=== PATIENT | male | born 1945 | race Caucasian/White ===

== ENCOUNTER 2017-08-01 15:58 | Emergency (ER) | payer MEDICARE ==
[2017-08-01] MEDS ORDERED: Ondansetron ODT 4 MG TAB ONE (17:05)
--- NOTE | 2017-08-01 17:23 | RAD ---
FRONTAL VIEW CHEST THREE VIEW LEFT RIB SERIES 08/01/17 CLINICAL HISTORY: Fall with chest pain, injury. FINDINGS: There are bilateral interstitial opacities. Cardiac silhouette is prominent in size. No significant e ffusion or discrete pneumothorax. There is no displaced left rib fracture identified. IMPRESSION: 1. Bilateral atelectasis. 2. No displaced left rib fracture. POS: [facility]
--- NOTE | 2017-08-01 17:24 | RAD ---
LEFT SHOULDER THREE VIEWS 08/01/17 INDICATION: Fall with pain. 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 No fracture or dislocation. IMPRESSION: No acute osseous abnormality of the left shoulder. POS: [facility]
== END 2017-08-01 18:12 | disposition home or self-care (01) ==
LOC: ERS 15:58
DX: S20.219A Contusion of unspecified front wall of thorax, initial encounter (principal); J98.11 Atelectasis; R11.0 Nausea; I11.0 Hypertensive heart disease with heart failure; I50.9 Heart failure, unspecified; E78.5 Hyperlipidemia, unspecified; W18.30XA Fall on same level, unspecified, initial encounter
CPT/HCPCS: 93005; Q0162

== ENCOUNTER 2018-01-29 15:41 | Emergency (ER) | payer MEDICARE ==
[2018-01-29 17:05] LABS: CKMB 2.7 ng/mL (0-6.6); Troponin I Less than 0.010 ng/mL (< 0.028)
[2018-01-29 17:09] LABS: ALT (SGPT) 15 U/L (8-55); AST (SGOT) 18 U/L (5-34); Albumin 3.9 g/dL (3.4-4.8); Alkaline Phosphatase 80 U/L (40-150); Anion Gap 13 mmol/L (10-20); BUN (Urea Nitrogen) 61 mg/dL (8.4-25.7); Bilirubin, Total 0.3 mg/dL (0.2-1.2); Calc. Creatinine Clearance 0 mL/min (70-130); Calcium 9.3 mg/dL (7.8-10.44); Carbon Dioxide 29 mmol/L (23-31); Chloride 105 mmol/L (98-107); Estimated GFR-MDRD 29; Globulin 2.4 g/dL (2.4-3.5); Glucose 169 mg/dL (83-110); Potassium 4.5 mmol/L (3.5-5.1); Protein, Total 6.3 g/dL (5.8-8.1); Sodium 142 mmol/L (136-145)
--- NOTE | 2018-01-29 17:11 | RAD ---
CHEST TWO VIEWS: HISTORY: Chest pain. Shortness of breath. COMPARISON: 08/01/2017 FINDINGS: Two views of the chest show an enlarged cardiomediastinal silhouette. There appear to be small bilat eral pleural effusions with adjacent atelectasis. Degenerative changes are seen in the spine. IMPRESSION: 1. Cardiomegaly. 2. Small bilateral pleural effusions with adjacent atelectasis. POS: [facility]
[2018-01-29 17:37] LABS: #Eosinphils 0.1 thou/uL (0.0-0.7); #Lymphocytes 1.3 thou/uL (1.20-3.40); #Monocytes 1.1 thou/uL (0.11-0.59); #Neutrophils 7.7 thou/uL (1.40-6.50); %Basophils 0.3 % (0.0-1.0); %Eosinophils 1.2 % (0.0-10.0); %Lymphocytes 12.8 % (21.0-51.0); %Monocytes 10.8 % (0.0-10.0); %Neutrophils 74.9 % (42.0-75.0); Hemoglobin 10.4 g/dL (14.0-18.0); Mean Corpuscular HGB CONC 33.6 g/dL (32.0-36.0); Mean Corpuscular Hemoglobin 30.7 pg (27.0-31.0); Mean Corpuscular Volume 91.5 fL (78.0-98.0); Mean Platelet Volume 7.7 fL (7.4-10.4); Platelet Count 224 thou/uL (130-400); RBC Distribution Width 14.4 % (11.5-14.5); Red Blood Cell (RBC) Count 3.38 mill/uL (4.70-6.10); White Blood Cell (WBC) Count 10.3 thou/uL (4.8-10.8)
== END 2018-01-29 22:18 | disposition home or self-care (01) ==
LOC: ERS 15:41
DX: I11.0 Hypertensive heart disease with heart failure (principal); I50.9 Heart failure, unspecified; E78.5 Hyperlipidemia, unspecified; E11.9 Type 2 diabetes mellitus without complications; Z79.82 Long term (current) use of aspirin; Z79.84 Long term (current) use of oral hypoglycemic drugs; Z79.899 Other long term (current) drug therapy
CPT/HCPCS: 36415; 71046; 80053; 82553; 83880; 84484; 85025; 93005

== ENCOUNTER 2019-02-24 19:16 | Emergency (ER) | payer MEDICARE ==
[2019-02-24] MEDS ORDERED: Nitroglycerin 2% Ointment 1 INCH/1 GM Packet ONE (19:42)
[2019-02-24 19:54] LABS: #Eosinphils 0.1 thou/uL (0.0-0.7); #Lymphocytes 1.1 thou/uL (1.20-3.40); #Monocytes 0.9 thou/uL (0.11-0.59); #Neutrophils 6.2 thou/uL (1.40-6.50); %Basophils 0.2 % (0.0-1.0); %Eosinophils 1.2 % (0.0-10.0); %Lymphocytes 13.5 % (21.0-51.0); %Monocytes 11.1 % (0.0-10.0); Hemoglobin 8.9 g/dL (14.0-18.0); Mean Corpuscular HGB CONC 32.5 g/dL (32.0-36.0); Mean Corpuscular Hemoglobin 29.8 pg (27.0-31.0); Mean Corpuscular Volume 91.6 fL (78.0-98.0); Mean Platelet Volume 7.8 fL (7.4-10.4); Platelet Count 199 thou/uL (130-400); RBC Distribution Width 14.2 % (11.5-14.5); White Blood Cell (WBC) Count 8.4 thou/uL (4.8-10.8)
[2019-02-24] MEDS ORDERED: Furosemide 20 MG/2 ML VIAL ONE (20:04)
[2019-02-24 20:13] LABS: ALT (SGPT) 16 U/L (8-55); AST (SGOT) 18 U/L (5-34); Albumin 3.9 g/dL (3.4-4.8); Alkaline Phosphatase 78 U/L (40-150); Anion Gap 12 mmol/L (10-20); BUN (Urea Nitrogen) 56 mg/dL (8.4-25.7); Bilirubin, Total 0.3 mg/dL (0.2-1.2); Calc. Creatinine Clearance 0 mL/min (70-130); Calcium 8.8 mg/dL (7.8-10.44); Carbon Dioxide 28 mmol/L (23-31); Chloride 103 mmol/L (98-107); Estimated GFR-MDRD 25; Glucose 335 mg/dL (83-110); Potassium 4.9 mmol/L (3.5-5.1); Protein, Total 6.9 g/dL (5.8-8.1); Sodium 138 mmol/L (136-145)
--- NOTE | 2019-02-24 20:18 | RAD ---
SINGLE VIEW OF THE CHEST: Comparison: 10-22-13, 01-29-18 History: High blood pressure. FINDINGS: Single view of the chest shows an enlarged but stable cardiomediastinal silhouette. There is no evide nce of consolidation, mass, or pleural effusion. IMPRESSION: Stable cardiomegaly. POS: [facility]
[2019-02-24 21:13] LABS: Bacteria/HPF None Seen HPF (None Seen); Bilirubin Negative (Negative); Blood, Urine Negative (Negative); Clarity Clear (Clear); Glucose, Urine (Dipstick) 300 mg/dL (Negative); Leukocyte Negative Leu/uL (Negative); Nitrite Negative (Negative); Protein, Urine (Dipstick) 30 mg/dL (Neg-Trace); RBC/HPF 0-3 HPF (0-3); Squamous Epithelial None Seen HPF (0-3); Urobilinogen Normal mg/dL (Less than 2); WBC/HPF 0-3 HPF (0-3)
== END 2019-02-24 21:24 | disposition home or self-care (01) ==
LOC: ERS 19:16
DX: I11.0 Hypertensive heart disease with heart failure (principal); I50.9 Heart failure, unspecified; E11.9 Type 2 diabetes mellitus without complications; E78.5 Hyperlipidemia, unspecified; E78.00 Pure hypercholesterolemia, unspecified; Z79.899 Other long term (current) drug therapy; Z79.84 Long term (current) use of oral hypoglycemic drugs
CPT/HCPCS: 71045; 80053; 81003; 81015; 83605; 83880; 84443; 84484; 85025; 93005; 94760; 96374; J1940

== ENCOUNTER 2019-04-19 19:36 | Observation (INO) | payer MEDICARE ==
[2019-04-19 20:34] LABS: #Eosinphils 0.1 thou/uL (0.0-0.7); #Lymphocytes 1.1 thou/uL (1.20-3.40); #Neutrophils 6.6 thou/uL (1.40-6.50); %Basophils 0.5 % (0.0-1.0); %Eosinophils 1.1 % (0.0-10.0); %Lymphocytes 12.9 % (21.0-51.0); %Monocytes 10.7 % (0.0-10.0); %Neutrophils 74.8 % (42.0-75.0); Hemoglobin 9.7 g/dL (14.0-18.0); Mean Corpuscular HGB CONC 31.8 g/dL (32.0-36.0); Mean Corpuscular Hemoglobin 29.7 pg (27.0-31.0); Mean Corpuscular Volume 93.5 fL (78.0-98.0); Mean Platelet Volume 8.3 fL (7.4-10.4); Platelet Count 183 thou/uL (130-400); Red Blood Cell (RBC) Count 3.27 mill/uL (4.70-6.10); White Blood Cell (WBC) Count 8.8 thou/uL (4.8-10.8)
[2019-04-19 20:52] LABS: ALT (SGPT) 18 U/L (8-55); AST (SGOT) 18 U/L (5-34); Alkaline Phosphatase 82 U/L (40-110); Anion Gap 14 mmol/L (10-20); BUN (Urea Nitrogen) 61 mg/dL (8.4-25.7); Bilirubin, Total 0.3 mg/dL (0.2-1.2); CK (CPK) 78 U/L (30-200); Calc. Creatinine Clearance 0 mL/min (70-130); Calcium 9.2 mg/dL (7.8-10.44); Carbon Dioxide 28 mmol/L (23-31); Chloride 101 mmol/L (98-107); Estimated GFR-MDRD 23; Globulin 3.2 g/dL (2.4-3.5); Glucose 377 mg/dL (83-110); Potassium 4.5 mmol/L (3.5-5.1); Protein, Total 7.2 g/dL (5.8-8.1); Sodium 138 mmol/L (136-145)
[2019-04-19 21:14] LABS: CKMB 1.9 ng/mL (0-6.6)
--- NOTE | 2019-04-19 22:15 | RAD ---
Portable chest: HISTORY: Weakness COMPARISON: 02/24/2019 FINDINGS: Lung mobley are clear. Streaky atelectasis in both midlung mobley appear stable. Heart and mediastinum appear unremarkable. Vascularity is normal. Visualized osseous structures unremarkable. IMPRESSION: No acute finding
[2019-04-20 00:01] LABS: Troponin I 0.013 ng/mL (< 0.028)
[2019-04-20] MEDS ORDERED: Acetaminophen 325 MG TAB ONE (04:42)
[2019-04-20] MEDS ORDERED: Acetaminophen 325 MG TAB PO PRN (05:08)
[2019-04-20] MEDS ORDERED: hydrALAZINE 20 MG/ML VIAL ONE (05:35)
[2019-04-20] MEDS ORDERED: hydrALAZINE 20 MG/ML VIAL SLOW IVP PRN (05:43)
[2019-04-20 07:49] VITALS: BMI 32.1
[2019-04-20] MEDS ORDERED: FLU VACC TS2019-20(65YR UP)/PF 180 MCG/0.5 ML SYRINGE IM ONE (08:15)
[2019-04-20] MEDS: NIFEdipine XL 60 MG TAB PO SCH (09:02)
[2019-04-20] MEDS ORDERED: hydrALAZINE 20 MG/ML VIAL SLOW IVP SCH (09:30)
[2019-04-20] MEDS ORDERED: Ondansetron PF 4 MG/2 ML Vial IVP PRN (09:45)
[2019-04-20] MEDS ORDERED: Enoxaparin Sodium 30 MG/0.3 ML SYRINGE SC SCH (09:45)
[2019-04-20] MEDS ORDERED: Bisacodyl 10 MG SUPP PR PRN (09:45)
[2019-04-20] MEDS ORDERED: Ondansetron ODT 4 MG TAB PO PRN (09:45)
[2019-04-20] MEDS ORDERED: Senokot S 8.6-50 MG TAB PO PRN (09:45)
[2019-04-20] MEDS ORDERED: Dextrose 50% Abboject 50 ML SYRINGE SLOW IVP PRN (09:48)
[2019-04-20] MEDS ORDERED: Dextrose 5% in Water 1,000 ML IV PRN (09:48)
[2019-04-20] MEDS ORDERED: Furosemide 80 MG TAB PO SCH (10:00)
[2019-04-20 10:35] LABS: Bacteria/HPF None Seen HPF (None Seen); Bilirubin Negative (Negative); Blood, Urine Negative (Negative); Clarity Clear (Clear); Glucose, Urine (Dipstick) Greater than 1000 mg/dL (Negative); Leukocyte Negative Leu/uL (Negative); Nitrite Negative (Negative); Protein, Urine (Dipstick) 100 mg/dL (Neg-Trace); Squamous Epithelial None Seen HPF (0-3); Urobilinogen Normal mg/dL (Less than 2); WBC/HPF 0-3 HPF (0-3)
[2019-04-20 10:40] LABS: Urine Culture Reflex No No
[2019-04-20 10:51] LABS: Creatinine, Urine 50.68 mg/dL (63-166)
--- NOTE | 2019-04-20 11:09 | HP ---
PRIMARY CARE PHYSICIAN: Dr. Horacio Sprague. CHIEF COMPLAINT: Ill feeling and elevated blood pressure. HISTORY OF PRESENT ILLNESS: A 73-year-old male with known history of hypertension, CKD stage 3 to 4, diabetes, and others, who presents today to the ED with acute onset of ill feeling and generalized weakness. The patient also noticed that his blood pressure was elevated. There was no chest pain, palpitation, headache, fall, focal weakness, nausea, vomiting, diarrhea, or dysuria. In the emergency room, the patient was found to have elevated blood pressure up to 220/75. Further evaluation revealed mild elevation in troponin. The patient was subsequently admitted for further evaluation and treatment. He received IV hydralazine with some improvement in blood pressure. There is no history of fever or worsening shortness of breath or change in bowel habit. The patient admitted to bilateral leg swelling, which is chronic and has not worsened in the last several days. PAST MEDICAL HISTORY: 1. Chronic CHF. 2. Diabetes mellitus. 3. Hyperlipidemia. 4. CKD stage 4. 5. Glaucoma. 6. Dyslipidemia. 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 FAMILY HISTORY: Reviewed, but noncontributory. SOCIAL HISTORY: The patient lives with spouse. Denied alcohol, smoking, or recreational drug use. The patient wants to be full code with spouse being the surrogate decision maker. ALLERGIES: NO KNOWN DRUG ALLERGIES REPORTED. HOME MEDICATIONS: 1. Carvedilol 12.5 mg p.o. b.i.d. 2. Dorzolamide hydrochloride/timolol 1 drop to each eye b.i.d. 3. hydralazine 25 mg p.o. b.i.d. 4. Glipizide 5 mg p.o. b.i.d. 5. Simvastatin 40 mg p.o. daily at bedtime. Of note, this list is questionable as the patient was unable to tell me what exactly he takes. REVIEW OF SYSTEMS: A 12-point review of systems performed was negative other than pertinent positives and negatives included in the history of present illness. PHYSICAL EXAMINATION: VITAL SIGNS: Temperature 97.9, pulse 67, respiratory rate 20, SpO2 of 95% on room air, blood pressure 198/86. GENERAL: Elderly male, in no obvious distress. Afebrile. Anicteric. Acyanotic. HEENT: Normocephalic, atraumatic. Oral mucosa is moist. NECK: Supple, nontender with no obvious JVD or lymphadenopathy. CARDIOVASCULAR: Regular rhythm and rate with normal heart sounds 1 and 2. RESPIRATORY: Fair air entry bilaterally with few transmitted breath sounds. No obvious rhonchi are appreciated. Work of breathing is not increased. GI: Obese, soft, nontender, nondistended with normal bowel sounds. EXTREMITIES: Mild to moderate bilateral leg edema noted. No erythema appreciated. ADVISOR TO COMMAND IN COMBAT: Conscious, alert, oriented x3 with appropriate mental status. Cranial nerves 2 through 12 are grossly intact. The patient moves all extremities. DIAGNOSTIC DATA: CBC showed WBC count of 8.8, hemoglobin of 9.7, platelet of 183. CMP on April 19 showed sodium 138, potassium 4.5, chloride 101, CO2 of 28, BUN 61, creatinine 2.71, glucose 377, calcium 9.2, total bilirubin 0.3, AST 18, ALT 18, alkaline phosphatase 82, total protein 7.2, albumin 4.0, globulin 3.2. Initial troponin on presentation on April 19, 2019, was 0.039, but subsequent ones were 0.013 and 0.020. BNP is 2555. ASSESSMENT: 1. Accelerated hypertension. 2. Chronic kidney disease stage 4: Seems stable. 3. Chronic diastolic heart failure with no overt exacerbation. 4. Chronic bilateral leg edema. 5. Mild elevation in troponin: Subsequent troponin levels, however, were unremarkable. Most likely demand ischemia from accelerated hypertension. The patient denied chest pain, and EKG was negative for acute ischemic changes. 6. Generalized illness and weakness: May be related to chronic kidney disease stage 4 and uncontrolled hypertension. 7. Uncontrolled diabetes mellitus with hyperglycemia. 8. Physical deconditioning. PLAN: 1. We will get repeat troponin as well as repeat echocardiogram. 2. We will also get hemoglobin A1c. 3. We will start sliding scale insulin in addition to glipizide to get better glycemic control. 4. We will start the patient on nifedipine and titrate dose upwards to get adequate BP control. We will also use hydralazine IV as needed to get adequate BP control. 5. PT/OT eval and treat will be requested. 6. DVT prophylaxis with Lovenox. 7. Code status: Full code. 8. Spouse is the surrogate decision maker. 9. Further treatment to follow depending on hospital course and results of other diagnostic tests. Job ID: [id number]
[2019-04-20 12:14] LABS: Troponin I 0.016 ng/mL (< 0.028)
[2019-04-20] MEDS: HumaLOG 300 UNITS/3 ML VIAL SC PRN ×2 (12:15→17:18)
[2019-04-20] MEDS ORDERED: Insulin Glargine 20 UNITS in Pre-Filled Syringe 1 EACH SC SCH (21:00)
[2019-04-20] MEDS ORDERED: Insulin Regular 300 UNITS/3 ML VIAL SC PRN (22:21)
[2019-04-20] MEDS ORDERED: HumaLOG 300 UNITS/3 ML VIAL SC PRN (22:21)
[2019-04-20] MEDS ORDERED: Melatonin 3 MG TAB PO PRN (22:33)
[2019-04-21 05:57] LABS: #Eosinphils 0.2 thou/uL (0.0-0.7); #Lymphocytes 1.5 thou/uL (1.20-3.40); #Neutrophils 6.1 thou/uL (1.40-6.50); %Basophils 0.6 % (0.0-1.0); %Lymphocytes 16.9 % (21.0-51.0); %Monocytes 10.8 % (0.0-10.0); %Neutrophils 69.7 % (42.0-75.0); Hemoglobin 9.2 g/dL (14.0-18.0); Mean Corpuscular HGB CONC 32.9 g/dL (32.0-36.0); Mean Corpuscular Hemoglobin 30.4 pg (27.0-31.0); Mean Corpuscular Volume 92.6 fL (78.0-98.0); Mean Platelet Volume 8.8 fL (7.4-10.4); Platelet Count 189 thou/uL (130-400); RBC Distribution Width 15.7 % (11.5-14.5); Red Blood Cell (RBC) Count 3.03 mill/uL (4.70-6.10); White Blood Cell (WBC) Count 8.8 thou/uL (4.8-10.8)
[2019-04-21 06:19] LABS: Albumin 3.5 g/dL (3.4-4.8); Anion Gap 13 mmol/L (10-20); BUN (Urea Nitrogen) 62 mg/dL (8.4-25.7); BUN/Creatinine Ratio 23.48; Calc. Creatinine Clearance 32 mL/min (70-130); Calcium 8.6 mg/dL (7.8-10.44); Carbon Dioxide 27 mmol/L (23-31); Chloride 106 mmol/L (98-107); Estimated GFR-MDRD 24; Glucose 129 mg/dL (83-110); Phosphorus 4.2 mg/dL (2.3-4.7); Potassium 4.2 mmol/L (3.5-5.1); Sodium 142 mmol/L (136-145)
--- NOTE | 2019-04-21 08:23 | PDOC.HOSPP ---
- Subjective Encounter Date: 04/21/19 Encounter Time: 08:21 Subjective: Had 2 runs of asymptomatic 2nd degree AV block overnight. Feeling better. - Objective Vital Signs & Weight: Vital Signs (12 hours) Temp Pulse Resp BP Pulse Ox 04/21/19 04:24 98.7 F 60 18 125/60 93 L 04/20/19 23:08 97.5 F L 63 20 154/70 H 92 L Weight Weight 200 lb 3.2 oz I&O: 04/20/19 04/21/19 04/22/19 06:59 06:59 06:59 Intake Total 720 Output Total 1725 Balance -1005 Result Diagrams: 04/21/19 04:57 04/21/19 04:57 Additional Labs: Accuchecks 04/21/19 04/20/19 04/20/19 05:29 21:09 16:41 POC Glucose 127 H 239 H 261 H 04/20/19 10:42 POC Glucose 384 H Hospitalist ROS - Medication Medications: Active Medications Generic Name Dose Route Start Last Admin Trade Name Freq PRN Reason Stop Dose Admin Hydralazine HCl 10 mg 04/20/19 05:43 04/20/19 05:35 Apresoline SLOW IVP 10 mg Q4H PRN Administration SBP > 160; DBP > 100 Insulin Glargine 20 units/ 0.2 mls @ 0 mls/hr 04/20/19 21:00 04/20/19 21:32 Miscellaneous Medication SC 0.2 mls HS CAROLYN Administration Insulin Human Lispro 0 units 04/20/19 09:48 04/20/19 17:18 Humalog SC 6 unit .MODERATE SLIDING SC PRN Administration Moderate Correctional Scale Insulin Human Lispro 0 units 04/20/19 22:21 04/20/19 23:06 Humalog SC 2 unit .BEDTIME SLIDING SC PRN Administration Bedtime Correctional Scale Nifedipine 60 mg 04/20/19 09:00 04/20/19 09:02 Procardia Xl PO 60 mg DAILY CAROLYN Administration Sodium Chloride 10 ml 04/20/19 09:00 04/20/19 21:32 Flush - Normal Saline IVF 10 ml Q12HR CAROLYN Administration - Exam General Appearance: awake alert Eye: anicteric sclera ENT: normocephalic atraumatic Neck: symmetric, no JVD Heart: RRR Respiratory: no wheezes, no ronchi, normal chest expansion, no tachypnea Gastrointestinal: soft, non-tender, non-distended, normal bowel sounds Extremities: 1+ LE edema Neurological: cranial nerve grossly intact, no focal deficits Neurological - other findings: Hard of hearing. Psychiatric: normal affect, A&O x 3 Hosp A/P (1) Accelerated hypertension Code(s): I10 - ESSENTIAL (PRIMARY) HYPERTENSION Status: Acute (2) AV block, 2nd degree Code(s): I44.1 - ATRIOVENTRICULAR BLOCK, SECOND DEGREE Status: Acute (3) Chronic diastolic (congestive) heart failure Code(s): I50.32 - CHRONIC DIASTOLIC (CONGESTIVE) HEART FAILURE Status: Acute (4) Chronic kidney disease, stage 4 (severe) Code(s): N18.4 - CHRONIC KIDNEY DISEASE, STAGE 4 (SEVERE) Status: Acute (5) Diabetes mellitus type 2 Code(s): E11.9 - TYPE 2 DIABETES MELLITUS WITHOUT COMPLICATIONS Status: Chronic - Plan Continue to hold coreg. Continue nifedipine and lasix. Await Cardiology evlaution Get Echo For dischrge once cleared by cardiology
[2019-04-21] MEDS ORDERED: Furosemide 80 MG TAB PO SCH (09:00)
[2019-04-21] MEDS ORDERED: Enoxaparin Sodium 30 MG/0.3 ML SYRINGE SC SCH (09:00)
[2019-04-21] MEDS: NIFEdipine XL 60 MG TAB PO SCH (09:14)
[2019-04-21 12:14] VITALS: TEMP 97.3
[2019-04-21] MEDS ORDERED: NIFEdipine XL 30 MG TAB PO SCH (12:15)
--- NOTE | 2019-04-21 12:48 | CON ---
DATE OF CONSULTATION: REASON FOR CONSULTATION: Second-degree type 1 AV block. HISTORY OF PRESENT ILLNESS: Mr. Peres is a 73-year-old gentleman, who is a patient of Dr. Manuel Churchill. He recently was admitted for hypertension. He had an asymptomatic second-degree type 1 AV block while asleep only. No syncope or presyncope associated symptoms. PAST MEDICAL HISTORY: Diabetes mellitus, hyperlipidemia, chronic kidney disease, and CHF. ALLERGIES: NONE. REVIEW OF SYSTEMS: Ten-point review of systems is reviewed as above, otherwise negative. PHYSICAL EXAMINATION: GENERAL: Patient is a pleasant gentleman, who is in no acute distress. The patient appears their stated age. VITAL SIGNS: Blood pressure 116/69, pulse 63, and temperature 97.3. NEUROLOGIC: The patient is alert and oriented x3 with no focal neurologic deficits. HEENT: Sclerae without icterus. Mouth has moist mucous membranes with normal pallor. NECK: No JVD. Carotid upstroke brisk. No bruits bilaterally. LUNGS: Clear to auscultation with unlabored respirations. BACK: No scoliosis or kyphosis. CARDIAC: Regular rate and rhythm with normal S1 and S2. No S3 or S4 noted. No significant rubs, murmurs, thrills, or gallops noted throughout the precordium. PMI is not displaced. There is no parasternal heave. ABDOMEN: Soft, nontender, nondistended. No peritoneal signs present. No hepatosplenomegaly. No abnormal striae. EXTREMITIES: 2+ femoral and 2+ dorsalis pedis pulses. No cyanosis, clubbing, or edema. SKIN: No gross abnormalities. PERTINENT LABORATORY DATA: Hemoglobin 9.2. Creatinine 2.6. IMPRESSION: Second-degree type 1 atrioventricular block. RECOMMENDATIONS: This is likely due to increased vagal tone. This occurred while asleep. No current symptoms. No syncope or presyncope, lightheaded, or dizziness. No further recommendations for second-degree type 1 AV block. We will sign off. Please re-consult if needed. Job ID: [id number]
[2019-04-22 09:00] VITALS: BP 138/63
[2019-04-22] MEDS ORDERED: NIFEdipine XL 90 MG TAB PO SCH (09:00)
--- NOTE | 2019-04-22 14:54 | DIS ---
DATE OF ADMISSION: 04/20/2019 DATE OF DISCHARGE: 04/21/2019 PRIMARY CARE PHYSICIAN: Dr. Horacio Sprague. DISCHARGE DIAGNOSES: 1. Accelerated hypertension. 2. Second-degree AV block. 3. Acute on chronic diastolic heart failure. 4. Chronic kidney disease, stage 4. 5. Type 2 diabetes mellitus. CONSULTS: Cardiology. HOSPITAL COURSE: A 73-year-old male with known history of hypertension, CKD stage 4, diabetes, and others who was admitted with generalized ill feeling and weakness. The patient also reported that blood pressure was elevated at home. On presentation to the ED, he was found to have acutely elevated BP of 220/75. He also was found to have mild elevation in troponin, hence was admitted. Antihypertensives were adjusted while the patient also received IV hydralazine with improvement in blood pressure. Serial troponin was observed. Initial troponin was mildly elevated at 0.039, but subsequent ones were unremarkable. The patient also remained without chest pain prior to presentation and during this hospitalization. He was also found to have bilateral leg swelling and some bibasilar crackles consistent with acute on chronic heart failure. The patient also was noted to have second-degree AV block at night, which was largely asymptomatic. Impression of acute on chronic diastolic heart failure was made and the patient was treated with diuretics with improvement. The patient also was started on nifedipine, which was escalated to get adequate BP control. Cardiology consult was obtained due to a second-degree AV block and he was of the view that this is asymptomatic and it happened at sleep. As such, no intervention is required at this time. The patient, who was on Coreg on presentation had that held during this hospitalization and at discharge. He was, however, asked to follow up with the advertising sales associate for further evaluation and treatment. The patient also was found to have CKD stage 4, which remained stable during this hospitalization and he was asked to follow up with the quality assurance engineer. He remained stable and was subsequently discharged home. FOLLOWUP: 1. With PCP in 1 week. 2. With advertising sales associate and quality assurance engineer in 1 week. DISCHARGE MEDICATIONS: 1. Doxycycline 100 mg p.o. daily. 2. Dorzolamide/timolol 1 drop to each eye b.i.d. 3. Ferrous sulfate 1 tablet p.o. daily. 4. Glipizide 10 mg p.o. t.i.d. 5. Insulin Lantus 20 units daily at bedtime. 6. Latanoprost one drop to each eye at bedtime. 7. Magnesium 250 mg p.o. daily. 8. Multivitamin one tablet p.o. daily. 9. Simvastatin 40 mg p.o. daily at bedtime. 10. Furosemide 80 mg p.o. daily. 11. Nifedipine 90 mg p.o. daily. Job ID: [id number]
--- NOTE | 2019-04-28 02:14 | EKG ---
Test Reason : WEAKNESS Blood Pressure : / mmHG Vent. Rate : 058 BPM Atrial Rate : 058 BPM P-R Int : 386 ms QRS Dur : 094 ms QT Int : 456 ms P-R-T Axes : 024 -33 033 degrees QTc Int : 447 ms Sinus bradycardia with 1st degree A-V block Left axis deviation Moderate voltage criteria for LVH, may be normal variant Abnormal ECG Confirmed by SALIMA Wilson, JB ([id number]), acquisitions editor MILLIE LONGO ([id number] on 04/28/2019 2:13:58 AM Referred By: Confirmed By:JB BORREGO M.D.
== END 2019-04-21 16:15 | disposition home or self-care (01) ==
LOC: ERS 19:36 → ERHOLD 04-20 00:07 → 2SW 04-20 07:25
PROVIDERS: ADMIT Hospitalist; ATTEND Hospitalist
DX: I13.0 Hypertensive heart and chronic kidney disease with heart failure and stage 1 through stage 4 chronic kidney disease, or unspecified chronic kidney disease (principal); E11.22 Type 2 diabetes mellitus with diabetic chronic kidney disease; N18.4 Chronic kidney disease, stage 4 (severe); I50.33 Acute on chronic diastolic (congestive) heart failure; I44.1 Atrioventricular block, second degree; R53.1 Weakness; E78.5 Hyperlipidemia, unspecified; H40.9 Unspecified glaucoma; R79.89 Other specified abnormal findings of blood chemistry; E11.65 Type 2 diabetes mellitus with hyperglycemia; Z79.4 Long term (current) use of insulin; Z79.899 Other long term (current) drug therapy
CPT/HCPCS: 71045; 80053; 80069; 81001; 82550; 82553; 82570; 82962 ×2; 83036; 83880; 84156; 84300; 84484 ×2; 84540; 85025 ×2; 90662; 93005; 93306; 96372; 96374; 97139 ×3; 99285; G0008; G0378 ×4; 36415; 36416; 90471; J0360; J1650; J1815

== ENCOUNTER 2020-08-04 03:06 | Inpatient (IN) | payer MEDICARE, OTHER ==
[2020-08-04 03:58] LABS: Hemoglobin 11.5 g/dL (14.0-18.0); Mean Corpuscular HGB CONC 32.5 g/dL (32.0-36.0); Mean Corpuscular Hemoglobin 30.9 pg (27.0-31.0); Mean Corpuscular Volume 94.9 fL (78.0-98.0); RBC Distribution Width 14.1 % (11.5-14.5); Red Blood Cell (RBC) Count 3.73 mill/uL (4.70-6.10)
[2020-08-04 03:59] LABS: Bilirubin Negative (Negative); Blood, Urine 1+ (Negative); Clarity Clear (Clear); Glucose, Urine (Dipstick) Normal (Negative); Ketone, Urine Negative (Negative); Leukocyte Negative Leu/uL (Negative); Nitrite Negative (Negative); Protein, Urine (Dipstick) 200 mg/dL (Neg-Trace); RBC/HPF 0-3 HPF (0-3); Specific Gravity, Urine 1.012 (1.002-1.036); Squamous Epithelial None Seen HPF (0-3); Urobilinogen Normal mg/dL (Less than 2); WBC/HPF 0-3 HPF (0-3)
[2020-08-04 04:09] LABS: ALT (SGPT) 29 U/L (8-55); AST (SGOT) 38 U/L (5-34); Albumin 4.3 g/dL (3.4-4.8); Alkaline Phosphatase 121 U/L (40-110); Anion Gap 19 mmol/L (10-20); BUN (Urea Nitrogen) 73 mg/dL (8.4-25.7); Bilirubin, Total 0.3 mg/dL (0.2-1.2); Calc. Creatinine Clearance 0 mL/min (70-130); Calcium 8.8 mg/dL (7.8-10.44); Carbon Dioxide 25 mmol/L (23-31); Chloride 107 mmol/L (98-107); Globulin 3.8 g/dL (2.4-3.5); Glucose 110 mg/dL (83-110); Potassium 4.8 mmol/L (3.5-5.1); Protein, Total 8.1 g/dL (5.8-8.1); Sodium 146 mmol/L (136-145)
[2020-08-04 04:13] LABS: Bacteria/HPF 1+ HPF (None Seen)
[2020-08-04] MEDS ORDERED: Aspirin 325 MG TAB ONE (04:22)
[2020-08-04 04:28] LABS: Band 6 % (5-11); Lymphocytes 8 % (21-51); MDiff Complete? YES; Mean Platelet Volume 8.5 fL (7.4-10.4); Monocytes 13 % (0-10); Neutrophil 72 % (42-75); Platelet Count 221 thou/uL (130-400)
[2020-08-04 04:33] LABS: CKMB 2.7 ng/mL (0-6.6)
[2020-08-04] MEDS ORDERED: Nitroglycerin 2% Ointment 1 INCH/1 GM Packet ONE (04:37)
[2020-08-04 06:57] LABS: Troponin I 0.069 ng/mL (< 0.028)
[2020-08-04] MEDS ORDERED: Acetaminophen 650 MG Suppository PR PRN (08:25)
[2020-08-04] MEDS ORDERED: Dextrose 50% Abboject 50 ML SYRINGE SLOW IVP PRN (08:27)
[2020-08-04] MEDS ORDERED: Dextrose 5% in Water 1,000 ML IV PRN (08:27)
[2020-08-04] MEDS ORDERED: Sodium Chloride 0.9% 500 ML IV SCH (08:30)
[2020-08-04] MEDS ORDERED: DorzolamidE/Timolol 2%/0.5% Ophth Soln 10 ml Bottle EA EYE SCH (09:00)
[2020-08-04] MEDS ORDERED: NIFEdipine XL 90 MG TAB PO SCH (09:00)
[2020-08-04] MEDS: NIFEdipine XL 60 MG TAB PO SCH (10:28)
[2020-08-04] MEDS ORDERED: Dextrose 5% in Water 1,000 ML IV SCH (10:45)
[2020-08-04 11:05] LABS: Troponin I 0.085 ng/mL (< 0.028)
[2020-08-04] MEDS: Heparin 5,000 UNITS/ML VIAL SC SCH ×3 (11:29→21:26)
[2020-08-04 11:49] LABS: Sodium 143 mmol/L (136-145)
[2020-08-04 14:04] LABS: SARS-CoV-2 PCR by NAA DETECTED (NotDetected)
[2020-08-04 18:49] LABS: Sodium 141 mmol/L (136-145)
[2020-08-04 19:04] VITALS: BMI 32.5
[2020-08-04] MEDS ORDERED: hydrALAZINE 20 MG/ML VIAL SLOW IVP SCH (21:00)
[2020-08-04] MEDS: Latanoprost 0.005% Ophth Soln 2.5 ml Bottle EA EYE SCH (21:24)
[2020-08-04] MEDS: Insulin Glargine 10 UNITS in Pre-Filled Syringe 1 EACH SC SCH (22:21)
[2020-08-04] MEDS ORDERED: Melatonin 3 MG TAB PO SCH ×2 (23:00)
[2020-08-04 23:27] LABS: Sodium 142 mmol/L (136-145)
[2020-08-05] MEDS ORDERED: hydrALAZINE 20 MG/ML VIAL SLOW IVP SCH (04:15)
[2020-08-05 05:35] LABS: Sodium 141 mmol/L (136-145)
[2020-08-05 05:38] LABS: Anion Gap 14 mmol/L (10-20); BUN (Urea Nitrogen) 66 mg/dL (8.4-25.7); Calc. Creatinine Clearance 31 mL/min (70-130); Carbon Dioxide 22 mmol/L (23-31); Chloride 109 mmol/L (98-107); Potassium 4.4 mmol/L (3.5-5.1); Sodium 141 mmol/L (136-145)
[2020-08-05 05:39] LABS: Glucose 147 mg/dL (83-110)
[2020-08-05 05:54] LABS: Mean Corpuscular HGB CONC 33.1 g/dL (32.0-36.0); Mean Corpuscular Hemoglobin 31.1 pg (27.0-31.0); Mean Platelet Volume 8.5 fL (7.4-10.4); Platelet Count 186 thou/uL (130-400); Red Blood Cell (RBC) Count 3.23 mill/uL (4.70-6.10)
[2020-08-05 06:39] LABS: Band 16 % (5-11); Lymphocytes 9 % (21-51); MDiff Complete? YES; Monocytes 14 % (0-10); Neutrophil 61 % (42-75)
[2020-08-05] MEDS: DorzolamidE/Timolol 2%/0.5% Ophth Soln 10 ml Bottle EA EYE SCH ×3 (07:30→16:31)
[2020-08-05] MEDS: Zinc Sulfate 220 MG CAP PO SCH (09:05)
[2020-08-05] MEDS: NIFEdipine XL 60 MG TAB PO SCH (09:05)
[2020-08-05] MEDS: Ascorbic Acid 500 mg Chewable Tablet PO SCH (09:05)
[2020-08-05] MEDS: Cholecalciferol (Vitamin D3) 400 UNITS TAB PO SCH (09:05)
[2020-08-05] MEDS: Heparin 5,000 UNITS/ML VIAL SC SCH ×3 (09:06→20:43)
[2020-08-05] MEDS ORDERED: Carvedilol 6.25 MG TAB PO SCH ×3 (11:07→17:00)
[2020-08-05] MEDS: HumaLOG 300 UNITS/3 ML VIAL SC PRN ×3 (11:27→20:47)
[2020-08-05 12:07] LABS: Sodium 140 mmol/L (136-145)
[2020-08-05] MEDS ORDERED: Rocuronium Bromide 10 MG/ML (10ML VIAL) ONE (12:18)
[2020-08-05] MEDS: Carvedilol 6.25 MG TAB PO SCH (16:30)
[2020-08-05 17:55] LABS: Sodium 139 mmol/L (136-145)
[2020-08-05] MEDS: Melatonin 3 MG TAB PO SCH (20:42)
[2020-08-05] MEDS: Insulin Glargine 10 UNITS in Pre-Filled Syringe 1 EACH SC SCH (20:48)
[2020-08-05] MEDS: Latanoprost 0.005% Ophth Soln 2.5 ml Bottle EA EYE SCH (20:50)
[2020-08-06] MEDS: Carvedilol 6.25 MG TAB PO SCH ×2 (07:36→15:56)
[2020-08-06] MEDS: Cholecalciferol (Vitamin D3) 400 UNITS TAB PO SCH (07:39)
[2020-08-06] MEDS: DorzolamidE/Timolol 2%/0.5% Ophth Soln 10 ml Bottle EA EYE SCH ×2 (07:39→16:03)
[2020-08-06] MEDS: Heparin 5,000 UNITS/ML VIAL SC SCH ×3 (07:39→20:35)
[2020-08-06] MEDS: Ascorbic Acid 500 mg Chewable Tablet PO SCH (07:39)
[2020-08-06] MEDS: NIFEdipine XL 60 MG TAB PO SCH (07:39)
[2020-08-06] MEDS: Zinc Sulfate 220 MG CAP PO SCH (07:40)
[2020-08-06] MEDS: Acetaminophen 325 MG TAB PO PRN (11:02)
[2020-08-06] MEDS ORDERED: Ondansetron PF 4 MG/2 ML Vial IVP PRN (14:48)
[2020-08-06] MEDS ORDERED: Ondansetron ORAL SOLN. 4 MG/5 ML UDCUP PO PRN (14:48)
[2020-08-06 14:52] LABS: Anion Gap 17 mmol/L (10-20); BUN (Urea Nitrogen) 88 mg/dL (8.4-25.7); Calc. Creatinine Clearance 21 mL/min (70-130); Calcium 7.4 mg/dL (7.8-10.44); Carbon Dioxide 20 mmol/L (23-31); Chloride 105 mmol/L (98-107); Glucose 252 mg/dL (83-110); Potassium 4.4 mmol/L (3.5-5.1); Sodium 138 mmol/L (136-145)
[2020-08-06 15:00] LABS: Band 14 % (5-11); Hemoglobin 8.9 g/dL (14.0-18.0); Lymphocytes 6 % (21-51); MDiff Complete? YES; Mean Corpuscular HGB CONC 32.6 g/dL (32.0-36.0); Mean Corpuscular Volume 95.1 fL (78.0-98.0); Mean Platelet Volume 8.8 fL (7.4-10.4); Monocytes 10 % (0-10); Myelocyte 1 % (0-0); Neutrophil 69 % (42-75); Platelet Count 163 thou/uL (130-400); Platelet Morphology Comment Appears Adequate; Red Blood Cell (RBC) Count 2.87 mill/uL (4.70-6.10); Schistocytes SLIGHT = 2-5 cells (100X) (0-1/hpf); White Blood Cell (WBC) Count 7.7 thou/uL (4.8-10.8)
[2020-08-06] MEDS: HumaLOG 300 UNITS/3 ML VIAL SC PRN ×2 (16:56→20:31)
[2020-08-06] MEDS: Insulin Glargine 10 UNITS in Pre-Filled Syringe 1 EACH SC SCH (20:30)
[2020-08-06] MEDS: Melatonin 3 MG TAB PO SCH (20:35)
[2020-08-06] MEDS: Latanoprost 0.005% Ophth Soln 2.5 ml Bottle EA EYE SCH (20:35)
[2020-08-07 07:14] LABS: Hemoglobin 9.2 g/dL (14.0-18.0); Mean Corpuscular HGB CONC 33.3 g/dL (32.0-36.0); Mean Corpuscular Hemoglobin 31.6 pg (27.0-31.0); Mean Platelet Volume 8.9 fL (7.4-10.4); Platelet Count 163 thou/uL (130-400); RBC Distribution Width 13.8 % (11.5-14.5); Red Blood Cell (RBC) Count 2.91 mill/uL (4.70-6.10); White Blood Cell (WBC) Count 7.5 thou/uL (4.8-10.8)
[2020-08-07 07:25] LABS: Anion Gap 19 mmol/L (10-20); BUN (Urea Nitrogen) 106 mg/dL (8.4-25.7); Calc. Creatinine Clearance 18 mL/min (70-130); Calcium 7.3 mg/dL (7.8-10.44); Carbon Dioxide 18 mmol/L (23-31); Chloride 104 mmol/L (98-107); Glucose 153 mg/dL (83-110); Potassium 4.4 mmol/L (3.5-5.1); Sodium 137 mmol/L (136-145)
[2020-08-07 08:43] LABS: Band 22 % (5-11); Lymphocytes 8 % (21-51); MDiff Complete? YES; Monocytes 8 % (0-10); Neutrophil 62 % (42-75); Platelet Morphology Comment Appears Adequate; Polychromasia SLIGHT = 2-3 cells (100X) (0-2/hpf)
[2020-08-07] MEDS: Cholecalciferol (Vitamin D3) 400 UNITS TAB PO SCH (09:52)
[2020-08-07] MEDS: Zinc Sulfate 220 MG CAP PO SCH (09:52)
[2020-08-07] MEDS: NIFEdipine XL 60 MG TAB PO SCH (09:52)
[2020-08-07] MEDS: Carvedilol 6.25 MG TAB PO SCH ×2 (09:52→18:17)
[2020-08-07] MEDS: Ascorbic Acid 500 mg Chewable Tablet PO SCH (09:52)
[2020-08-07] MEDS: Latanoprost 0.005% Ophth Soln 2.5 ml Bottle EA EYE SCH (09:53)
[2020-08-07] MEDS: Heparin 5,000 UNITS/ML VIAL SC SCH ×3 (09:55→20:39)
[2020-08-07] MEDS: DorzolamidE/Timolol 2%/0.5% Ophth Soln 10 ml Bottle EA EYE SCH ×2 (12:50→17:31)
[2020-08-07] MEDS: Sodium Chloride 0.9% 1,000 ML IV SCH (13:47)
[2020-08-07] MEDS: HumaLOG 300 UNITS/3 ML VIAL SC PRN (16:37)
[2020-08-07] MEDS: Melatonin 3 MG TAB PO SCH (20:38)
[2020-08-07] MEDS: Insulin Glargine 10 UNITS in Pre-Filled Syringe 1 EACH SC SCH (20:39)
[2020-08-08 05:43] LABS: Anion Gap 23 mmol/L (10-20); BUN (Urea Nitrogen) 111 mg/dL (8.4-25.7); Calc. Creatinine Clearance 16 mL/min (70-130); Calcium 6.9 mg/dL (7.8-10.44); Carbon Dioxide 13 mmol/L (23-31); Chloride 103 mmol/L (98-107); Glucose 179 mg/dL (83-110); Potassium 4.3 mmol/L (3.5-5.1); Sodium 135 mmol/L (136-145)
[2020-08-08 06:41] LABS: Band 37 % (5-11); Hemoglobin 8.3 g/dL (14.0-18.0); Lymphocytes 9 % (21-51); MDiff Complete? YES; Mean Corpuscular HGB CONC 31.9 g/dL (32.0-36.0); Mean Corpuscular Hemoglobin 29.9 pg (27.0-31.0); Mean Corpuscular Volume 93.5 fL (78.0-98.0); Mean Platelet Volume 8.4 fL (7.4-10.4); Monocytes 15 % (0-10); Neutrophil 39 % (42-75); Platelet Count 166 thou/uL (130-400); Platelet Morphology Comment Appears Adequate; RBC Distribution Width 13.8 % (11.5-14.5); Red Blood Cell (RBC) Count 2.78 mill/uL (4.70-6.10)
[2020-08-08] MEDS: Zinc Sulfate 220 MG CAP PO SCH (07:50)
[2020-08-08] MEDS: Heparin 5,000 UNITS/ML VIAL SC SCH ×3 (07:50→20:56)
[2020-08-08] MEDS: Ascorbic Acid 500 mg Chewable Tablet PO SCH (07:54)
[2020-08-08] MEDS: Cholecalciferol (Vitamin D3) 400 UNITS TAB PO SCH (08:07)
[2020-08-08] MEDS: NIFEdipine XL 60 MG TAB PO SCH (08:09)
[2020-08-08] MEDS: DorzolamidE/Timolol 2%/0.5% Ophth Soln 10 ml Bottle EA EYE SCH ×2 (08:09→17:36)
[2020-08-08] MEDS: Sodium Chloride 0.9% 1,000 ML IV SCH (08:10)
[2020-08-08] MEDS: Carvedilol 6.25 MG TAB PO SCH ×2 (08:10→17:43)
[2020-08-08] MEDS ORDERED: NIFEdipine XL 60 MG TAB PO SCH (09:54)
[2020-08-08] MEDS ORDERED: hydrALAZINE 20 MG/ML VIAL SLOW IVP PRN (09:55)
[2020-08-08] MEDS ORDERED: NIFEdipine XL 30 MG TAB PO SCH (10:15)
[2020-08-08] MEDS: HumaLOG 300 UNITS/3 ML VIAL SC PRN ×2 (12:44→17:36)
[2020-08-08] MEDS: NIFEdipine XL 30 MG TAB PO SCH (12:45)
[2020-08-08] MEDS: Acetaminophen 325 MG TAB PO PRN (14:12)
[2020-08-08] MEDS: Insulin Glargine 10 UNITS in Pre-Filled Syringe 1 EACH SC SCH (20:56)
[2020-08-08] MEDS: Melatonin 3 MG TAB PO SCH (20:56)
[2020-08-09] MEDS: Latanoprost 0.005% Ophth Soln 2.5 ml Bottle EA EYE SCH ×2 (01:05→20:25)
[2020-08-09 06:00] LABS: #Lymphocytes 0.6 thou/uL (1.20-3.40); #Monocytes 0.8 thou/uL (0.11-0.59); %Basophils 0.4 % (0.0-1.0); %Eosinophils 0.3 % (0.0-10.0); %Lymphocytes 9.7 % (21.0-51.0); %Monocytes 11.9 % (0.0-10.0); %Neutrophils 77.7 % (42.0-75.0); Hemoglobin 8.9 g/dL (14.0-18.0); Mean Corpuscular HGB CONC 32.8 g/dL (32.0-36.0); Mean Corpuscular Hemoglobin 30.3 pg (27.0-31.0); Mean Corpuscular Volume 92.7 fL (78.0-98.0); Mean Platelet Volume 8.7 fL (7.4-10.4); Platelet Count 178 thou/uL (130-400); RBC Distribution Width 13.8 % (11.5-14.5); Red Blood Cell (RBC) Count 2.93 mill/uL (4.70-6.10); White Blood Cell (WBC) Count 6.5 thou/uL (4.8-10.8)
[2020-08-09 06:23] LABS: Anion Gap 19 mmol/L (10-20); Calc. Creatinine Clearance 14 mL/min (70-130); Calcium 7.1 mg/dL (7.8-10.44); Carbon Dioxide 16 mmol/L (23-31); Chloride 102 mmol/L (98-107); Glucose 125 mg/dL (83-110); Potassium 4.4 mmol/L (3.5-5.1); Sodium 133 mmol/L (136-145)
[2020-08-09 06:35] LABS: BUN (Urea Nitrogen) 116 mg/dL (8.4-25.7)
[2020-08-09] MEDS: Zinc Sulfate 220 MG CAP PO SCH (08:57)
[2020-08-09] MEDS: Cholecalciferol (Vitamin D3) 400 UNITS TAB PO SCH (08:58)
[2020-08-09] MEDS: NIFEdipine XL 30 MG TAB PO SCH (08:58)
[2020-08-09] MEDS: Carvedilol 6.25 MG TAB PO SCH (08:58)
[2020-08-09] MEDS: Acetaminophen 325 MG TAB PO PRN ×2 (08:59)
[2020-08-09] MEDS: Ascorbic Acid 500 mg Chewable Tablet PO SCH (09:01)
[2020-08-09] MEDS: Heparin 5,000 UNITS/ML VIAL SC SCH ×3 (09:01→20:25)
[2020-08-09] MEDS: DorzolamidE/Timolol 2%/0.5% Ophth Soln 10 ml Bottle EA EYE SCH ×2 (09:21→16:58)
[2020-08-09] MEDS: HumaLOG 300 UNITS/3 ML VIAL SC PRN (13:17)
[2020-08-09] MEDS ORDERED: Sodium Chloride 0.9% 200 ML IV SCH (13:45)
[2020-08-09] MEDS: Sodium Bicarbonate Tab 325 MG TAB PO SCH ×2 (14:48→21:34)
[2020-08-09] MEDS: Sodium Chloride 0.9% 1,000 ML IV SCH (14:48)
[2020-08-09] MEDS: Carvedilol 3.125 MG TAB PO SCH (16:58)
[2020-08-09] MEDS ORDERED: Sodium Chloride 0.9% 1,000 ML IV SCH (17:15)
[2020-08-09] MEDS: Melatonin 3 MG TAB PO SCH (20:24)
[2020-08-09] MEDS: Insulin Glargine 10 UNITS in Pre-Filled Syringe 1 EACH SC SCH (20:25)
[2020-08-10] MEDS: Acetaminophen 325 MG TAB PO PRN (00:16)
[2020-08-10] MEDS ORDERED: Albuterol 200 PUFF (6.7GM INHALER) INH PRN (04:47)
[2020-08-10 06:15] LABS: Band 10 % (5-11); Hemoglobin 8.8 g/dL (14.0-18.0); Lymphocytes 10 % (21-51); MDiff Complete? YES; Mean Corpuscular HGB CONC 32.9 g/dL (32.0-36.0); Mean Corpuscular Hemoglobin 30.4 pg (27.0-31.0); Mean Corpuscular Volume 92.5 fL (78.0-98.0); Mean Platelet Volume 8.5 fL (7.4-10.4); Monocytes 5 % (0-10); Neutrophil 75 % (42-75); Platelet Count 200 thou/uL (130-400); Platelet Morphology Comment Appears Adequate; RBC Distribution Width 13.7 % (11.5-14.5); Red Blood Cell (RBC) Count 2.88 mill/uL (4.70-6.10); White Blood Cell (WBC) Count 8.1 thou/uL (4.8-10.8)
[2020-08-10] MEDS: Ascorbic Acid 500 mg Chewable Tablet PO SCH (07:46)
[2020-08-10] MEDS: NIFEdipine XL 30 MG TAB PO SCH (07:46)
[2020-08-10] MEDS: Cholecalciferol (Vitamin D3) 400 UNITS TAB PO SCH (07:47)
[2020-08-10] MEDS: Carvedilol 3.125 MG TAB PO SCH ×2 (07:47→16:05)
[2020-08-10] MEDS: Heparin 5,000 UNITS/ML VIAL SC SCH ×2 (07:47→15:47)
[2020-08-10] MEDS: Sodium Bicarbonate Tab 325 MG TAB PO SCH (07:47)
[2020-08-10] MEDS: Zinc Sulfate 220 MG CAP PO SCH (07:47)
[2020-08-10] MEDS: DorzolamidE/Timolol 2%/0.5% Ophth Soln 10 ml Bottle EA EYE SCH ×2 (07:48→16:05)
[2020-08-10 11:05] LABS: Anion Gap 22 mmol/L (10-20); Calc. Creatinine Clearance 12 mL/min (70-130); Calcium 6.9 mg/dL (7.8-10.44); Carbon Dioxide 14 mmol/L (23-31); Chloride 101 mmol/L (98-107); Glucose 171 mg/dL (83-110); Phosphorus 8.4 mg/dL (2.3-4.7); Potassium 4.4 mmol/L (3.5-5.1); Sodium 133 mmol/L (136-145)
[2020-08-10 11:26] LABS: BUN (Urea Nitrogen) 152 mg/dL (8.4-25.7); BUN/Creatinine Ratio 22.35
[2020-08-10] MEDS ORDERED: EPINEPHrine 1 MG/10 ML Abboject SYRINGE ONE ×4 (12:39→19:18)
[2020-08-10] MEDS ORDERED: Sodium Bicarb 50 MEQ/50 ML Abboject 8.4% SYRINGE ONE ×4 (12:39→21:36)
[2020-08-10] MEDS ORDERED: Sodium Chloride 0.9% 1,000 ML IV SCH ×2 (13:45)
[2020-08-10 18:48] LABS: Actual Bicarbonate (HCO3a) 13.3 mEq/L (22-28); Base Excess (BEa) -16.2 mEq/L (-2.0 to +3.0); CO2 Tension 47.1 mmHg (35.0-45.0); Calcium, Ionized (arterial) 0.96 mmol/L (1.12-1.30); Carboxyhemoglobin (COHb) 0.4 gm% (0.0-3.0); Hemoglobin (Hb) 10.5 g/dL (14.0-18.0); Potassium - ABG Lab 4.73 mmol/L (3.70-5.30)
[2020-08-10] MEDS ORDERED: Norepinephrine 8 MG/0.9% NS 250 ML ONE (19:12)
[2020-08-10] MEDS ORDERED: EPINEPHrine 4 MG in Dextrose 5% in Water 250 ML IV SCH (19:45)
[2020-08-10 19:52] LABS: Hemoglobin 10.4 g/dL (14.0-18.0); Mean Corpuscular HGB CONC 32.2 g/dL (32.0-36.0); Mean Corpuscular Hemoglobin 30.4 pg (27.0-31.0); Mean Corpuscular Volume 94.3 fL (78.0-98.0); Mean Platelet Volume 8.5 fL (7.4-10.4); Platelet Count 223 thou/uL (130-400); RBC Distribution Width 14.1 % (11.5-14.5); Red Blood Cell (RBC) Count 3.42 mill/uL (4.70-6.10); White Blood Cell (WBC) Count 17.2 thou/uL (4.8-10.8)
[2020-08-10 20:11] LABS: Band 27 % (5-11); Lymphocytes 4 % (21-51); MDiff Complete? YES; Metamyelocyte 1 % (0-0); Monocytes 4 % (0-10); Neutrophil 64 % (42-75); Platelet Morphology Comment Appears Adequate; Polychromasia SLIGHT = 2-3 cells (100X) (0-2/hpf)
[2020-08-10 20:21] LABS: Troponin I 0.084 ng/mL (< 0.028)
[2020-08-10 20:27] VITALS: BP 95/51
[2020-08-10 20:32] LABS: Lactic Acid 3.3 mmol/L (0.5-2.2)
[2020-08-10 20:34] LABS: O2 Tension (PaO2), arterial 38.7 mmHg (> 70.0); Puncture Site LBA; pH, Arterial 7.07 (7.35-7.45)
[2020-08-10 20:34] LABS: ALT (SGPT) 69 U/L (8-55); AST (SGOT) 126 U/L (5-34); Albumin 2.7 g/dL (3.4-4.8); Alkaline Phosphatase 94 U/L (40-110); Anion Gap 26 mmol/L (10-20); Bilirubin, Total 0.3 mg/dL (0.2-1.2); Calc. Creatinine Clearance 12 mL/min (70-130); Calcium 6.9 mg/dL (7.8-10.44); Carbon Dioxide 13 mmol/L (23-31); Chloride 102 mmol/L (98-107); Globulin 3.1 g/dL (2.4-3.5); Glucose 191 mg/dL (83-110); Magnesium 2.6 mg/dL (1.6-2.6); Potassium 5.1 mmol/L (3.5-5.1); Protein, Total 5.8 g/dL (5.8-8.1); Sodium 136 mmol/L (136-145)
[2020-08-10 20:35] LABS: ALV-art Gradient 615.425 mmHg (0-20)
[2020-08-10 20:46] LABS: BUN (Urea Nitrogen) 127 mg/dL (8.4-25.7); Phosphorus 9.5 mg/dL (2.3-4.7)
[2020-08-10 21:33] VITALS: TEMP 94.7
[2020-08-10 23:14] LABS: HBSAg Index 0.19 S/CO (0-0.99); Hep B Surf Ag Non-Reactive S/CO (NonReactive)
[2020-08-11] MEDS ORDERED: Enoxaparin Sodium 30 MG/0.3 ML SYRINGE SC SCH (09:00)
== END 2020-08-10 20:31 | disposition expired | DRG 208 ==
LOC: ERS 03:06 → ERHOLD 05:57 → INTOOBSV 05:57 → 2SW 16:56 → OBSVTOIN 08-05 14:50 → CCU 08-10 18:21
PROVIDERS: ADMIT Student in an Organized Health Care Education/Training Program; ATTEND Internal Medicine
PROC: 5A1935Z Respiratory Ventilation, Less than 24 Consecutive Hours (ICD-10-PCS; principal; 2020-08-10)
PROC: 5A09357 Assistance with Respiratory Ventilation, Less than 24 Consecutive Hours, Continuous Positive Airway Pressure (ICD-10-PCS; 2020-08-10)
PROC: 06HY33Z Insertion of Infusion Device into Lower Vein, Percutaneous Approach (ICD-10-PCS; 2020-08-10)
PROC: 0BH17EZ Insertion of Endotracheal Airway into Trachea, Via Natural or Artificial Opening (ICD-10-PCS; 2020-08-10)
PROC: 5A12012 Performance of Cardiac Output, Single, Manual (ICD-10-PCS; 2020-08-10)
PROC: 3E033XZ Introduction of Vasopressor into Peripheral Vein, Percutaneous Approach (ICD-10-PCS; 2020-08-10)
DX: U07.1 COVID-19 (principal); J96.01 Acute respiratory failure with hypoxia; J12.82 Pneumonia due to coronavirus disease 2019; N18.6 End stage renal disease; N17.9 Acute kidney failure, unspecified; E87.2 Acidosis; E87.0 Hyperosmolality and hypernatremia; I50.32 Chronic diastolic (congestive) heart failure; I13.2 Hypertensive heart and chronic kidney disease with heart failure and with stage 5 chronic kidney disease, or end stage renal disease; I46.9 Cardiac arrest, cause unspecified; R79.89 Other specified abnormal findings of blood chemistry; E11.22 Type 2 diabetes mellitus with diabetic chronic kidney disease; E78.5 Hyperlipidemia, unspecified; E78.00 Pure hypercholesterolemia, unspecified; I35.1 Nonrheumatic aortic (valve) insufficiency; D63.1 Anemia in chronic kidney disease; I87.2 Venous insufficiency (chronic) (peripheral); E87.5 Hyperkalemia; E83.39 Other disorders of phosphorus metabolism; I16.0 Hypertensive urgency; I44.1 Atrioventricular block, second degree; Z79.899 Other long term (current) drug therapy; Z79.84 Long term (current) use of oral hypoglycemic drugs; Z78.1 Physical restraint status
CPT/HCPCS: 36415; 36416; 36600; 70450; 71045; 80048; 80053; 80069; 81003; 81015; 82553; 82805; 83605; 83735; 83880; 84100; 84484; 85025; 85652; 86140; 87340; 87633; 87635; 93005; 94660; 96372; 96374; 96376; G0378; J0171; J0360; J1642; J1644; J1815; U0003; U0005